=== PATIENT | female | born 1950 | race American Indian/Alaskan Native ===

== ENCOUNTER 2021-07-05 17:58 | Emergency (ER) | payer MEDICAID, MEDICARE ==
[2021-07-06 06:30] VITALS: BP 135/79
--- NOTE | 2021-07-06 07:16 | Emergency Department Report ---
ED Abdominal Pain HPI - General Chief Complaint: Urogenital-Female Stated Complaint: CHEST PAIN/FEVER/ABD PAIN Time Seen by Provider: 07/06/21 06:40 Source: EMS Mode of arrival: Stretcher Limitations: No Limitations - History of Present Illness Initial Comments: 70-year-old female who was recently diagnosed with acid reflux s/p EGD done in [place] who now presents with worsening epigastric pain associated with nausea without any significant emesis. Patient also reports some fever without chills. Patient also mentions some painful urination with also lower abdominal discomfort. No other modifying or associated factors reported. Severity scale (0 -10): 5 - Related Data Home Medications Medication Instructions Recorded Confirmed Last Taken AtorvaSTATin 80 mg PO QDAY 07/06/21 07/06/21 1 Day Ago ~07/05/21 Irbesartan-Hctz 150-12.5 mg Tb 12.5 mg PO QDAY 07/06/21 07/06/21 1 Day Ago ~07/05/21 Pantoprazole 40 mg PO QDAY 07/06/21 07/06/21 1 Day Ago ~07/05/21 Sucralfate 1 gm PO Q4HR 07/06/21 07/06/21 1 Day Ago ~07/05/21 Zolpidem Tartrate 5 mg PO QDAY 07/06/21 07/06/21 Unknown methocarbamoL [Methocarbamol] 750 mg PO TID 07/06/21 07/06/21 1 Day Ago ~07/05/21 Previous Rx's Medication Instructions Recorded Last Taken Type Omeprazole Magnesium [PriLOSEC Otc] 20 mg PO BID 30 Days #60 tab NS 07/06/21 Unknown Rx Sucralfate [Carafate] 1 gm PO ACHS 30 Days #60 tablet NS 07/06/21 Unknown Rx Allergies Allergy/AdvReac Type Severity Reaction Status Date / Time No Known Allergies Allergy Verified 07/06/21 07:44 ED Review of Systems ROS: Stated complaint: CHEST PAIN/FEVER/ABD PAIN Other details as noted in HPI Comment: All other systems reviewed and negative Cardiovascular: chest pain Gastrointestinal: abdominal pain (Epigastric and lower abdomen), nausea, vo miting Genitourinary: urgency, dysuria, frequency ED Past Medical Hx - Medications Home Medications: Home Medications Medication Instructions Recorded Confirmed Last Taken Type AtorvaSTATin 80 mg PO QDAY 07/06/21 07/06/21 1 Day Ago History ~07/05/21 Irbesartan-Hctz 150-12.5 mg Tb 12.5 mg PO QDAY 07/06/21 07/06/21 1 Day Ago History ~07/05/21 Omeprazole Magnesium [PriLOSEC Otc] 20 mg PO BID 30 Days #60 tab NS 07/06/21 Unknown Rx Pantoprazole 40 mg PO QDAY 07/06/21 07/06/21 1 Day Ago History ~07/05/21 Sucralfate 1 gm PO Q4HR 07/06/21 07/06/21 1 Day Ago History ~07/05/21 Sucralfate [Carafate] 1 gm PO ACHS 30 Days #60 tablet NS 07/06/21 Unknown Rx Zolpidem Tartrate 5 mg PO QDAY 07/06/21 07/06/21 Unknown History methocarbamoL [Methocarbamol] 750 mg PO TID 07/06/21 07/06/21 1 Day Ago History ~07/05/21 ED Physical Exam - General Limitations: No Limitations General appearance: alert, in distress (Due to epigastric discomfort) - Head Head exam: Present: normal inspection - Eye Eye exam: Present: normal appearance Pupils: Present: normal accommodation - ENT ENT exam: Present: normal exam, normal orophraynx, mucous membranes dry - Neck Neck exam: Present: normal inspection, full ROM. Absent: tenderness - Respiratory Respiratory exam: Present: normal lung sounds bilaterally. Absent: respiratory distress, accessory muscle use - Cardiovascular Cardiovascular Exam: Present: regular rate, normal rhythm, normal heart sounds - GI/Abdominal GI/Abdominal exam: Present: soft, tenderness (Epigastric tenderness and suprapubic tenderness to palpation), normal bowel sounds - Extremities Exam Extremities exam: Present: normal inspection, full ROM, normal capillary refill. Absent: tenderness, pedal edema, joint swelling - Back Exam Back exam: Absent: tenderness - Neurological Exam Neurological exam: Present: alert, oriented X3 - Psychiatric Psychiatric exam: Present: normal affect, normal mood - Skin Skin exam: Present: warm, normal color ED Course Vital Signs 07/06/21 07/06/21 07/06/21 02:10 06:08 06:29 Temperature 99.9 F H 97.9 F Pulse Rate 121 H 121 H 119 H Respiratory 22 15 Rate Blood Pressure 117/86 119/77 Blood Pressure 135/79 [Left] O2 Sat by Pulse 98 97 100 Oximetry 07/06/21 10:46 Temperature Pulse Rate Respiratory 16 Rate Blood Pressure Blood Pressure [Left] O2 Sat by Pulse 98 Oximetry - Reevaluation(s) Reevaluation #1: 07/06/21 07:14 Patient here with epigastric tenderness and noted with tenderness in this area and suprapubic tenderness with urinary frequency and dysuria--symptoms differential cool include but not limited to gastritis, GERD, myocardial infarction, pneumonia, urinary tract infection, pancreatitis, or constipation--in order to rule out the above we will go ahead and order EKG, cardiac enzyme troponin, get a chest x-ray, with lipase, CBC, CMP, and UA. In the meantime we will go ahead and give GI cocktail for symptomatic relief and get a CT scan of the abdomen to rule out any intra-abdominal inflammation as a cause. Reevaluation #2: 07/06/21 08:48 Lab reviewed and noted hypokalemia of 3.2, hyponatremia of 133 and abnormal TSH at 7.25 so we will go ahead and give 20 mEq of potassium, 1 L of IV fluid normal saline and order free T4--and continue to monitor patient. 07/06/21 14:[address] Sidhu while waiting for free T4 and if normal this patient could be discharged home for GERD with prilosec and sucrafate with close follow up with PCP-- ED Medical Decision Making - Lab Data Result diagrams: 07/06/21 07:31 07/06/21 07:31 Critical care attestation.: If time is entered above; I have spent that time in minutes in the direct care of this critically ill patient, excluding procedure time. ED Disposition Clinical Impression: Hypokalemia, Hyponatremia Abdominal pain Qualifiers: Abdominal location: unspecified location Qualified Code(s): R10.9 - Unspecified abdominal pain Gastritis Qualifiers: Gastritis type: unspecified gastritis Chronicity: chronic Gastritis bleeding: presence of bleeding unspecified Qualified Code(s): K29.50 - Unspecified chronic gastritis without bleeding GERD (gastroesophageal reflux disease) Qualifiers: Esophagitis presence: esophagitis presence not specified Qualified Code(s): K21.9 - Gastro-esophageal reflux disease without esophagitis Disposition: 30 STILL A PATIENT Does the pt Need Aspirin: No Condition: Stable Instructions: Gastritis, Adult, [id number], Abdominal Pain, Adult, [id number], Gastroesophageal Reflux Disease, Adult, [id number] Additional Instructions: Avoid spicy or heavy fatty meal which could worsen your symptoms Increase your daily fluid to help your hydration Take your new medication Prilosec and sucrafat to help your symptoms Schedule follow-up with your primary doctor in the next 3 to 5 days for progress Please do not hesitate to call or return to emergency room if your symptoms worsen Prescriptions: Sucralfate [Carafate] 1 gm PO ACHS 30 Days #60 tablet NS Omeprazole Magnesium [PriLOSEC Otc] 20 mg PO BID 30 Days #60 tab NS Referrals: [facility]LE[facility] PANCHAL [Other] - 3-5 Days Time of Disposition: 14:54 (Pt signed to Dr abrams at shift change )
[2021-07-06 07:45] LABS: Basophils % (Auto) 0.2 % (0.0-1.8); Eosinophils # (Auto) 0.1 K/mm3 (0.0-0.4); Eosinophils % (Auto) 0.6 % (0.0-4.3); Hematocrit 41.5 % (30.3-42.9); Hemoglobin 14.1 gm/dl (10.1-14.3); Lymphocytes # (Auto) 2.4 K/mm3 (1.2-5.4); Lymphocytes % (Auto) 25.2 % (13.4-35.0); Mean Corpuscular HGB Conc 34 % (30-34); Mean Corpuscular Volume 90 fl (79-97); Monocytes # (Auto) 0.9 K/mm3 (0.0-0.8); Monocytes % (Auto) 9.8 % (0.0-7.3); Platelet Count 337 K/mm3 (140-440); Red Blood Count 4.59 M/mm3 (3.65-5.03); Red Cell Distribution Width 13.7 % (13.2-15.2)
[2021-07-06] MEDS ORDERED: ONDANSETRON 4 MG/2 ML INJ IV SCH (08:00)
[2021-07-06] MEDS ORDERED: ALUM-MAG HYDROXIDE-SIMETHICONE 200-200-20MG/5ML ORAL LIQD 30 ML PO SCH (08:00)
[2021-07-06] MEDS ORDERED: LIDOCAINE VISCOUS 2% 15 ML ORAL LIQD PO SCH (08:00)
--- NOTE | 2021-07-06 08:04 | XRay Report ---
CHEST 1 VIEW INDICATION / CLINICAL INFORMATION: epigastric pain STUDY TIME: 741 COMPARISON: None available. FINDINGS: SUPPORT DEVICES: None HEART / MEDIASTINUM: No significant abnormality. LUNGS / PLEURA: No significant acute pulmonary or pleural abnormality. No pneumothorax. ADDITIONAL FINDINGS: No significant additional findings. Signer Name: Eloy Schwartz MD Signed: 07/06/2021 7:59 AM Workstation Name: [email or web address]
[2021-07-06 08:13] LABS: Alanine Aminotransferase 21 units/L (7-56); Albumin 4.3 g/dL (3.9-5); BUN/Creatinine Ratio 22; Blood Urea Nitrogen 20 mg/dL (7-17); Calcium 11.1 mg/dL (8.4-10.2); Hemolysis Index 7
[2021-07-06] MEDS ORDERED: PHENobarbital 15 MG TAB PO ONE (08:30)
[2021-07-06 08:49] LABS: INR 0.94 (0.87-1.13)
--- NOTE | 2021-07-06 09:29 | Cat Scan Report ---
CT ABDOMEN AND PELVIS WITH CONTRAST HISTORY: epigastric and suprapubic pain COMPARISON: None TECHNIQUE: Routine abdominal and pelvic CT exam performed following intravenous contrast administrat ion.. All CT scans at this location are performed using CT dose reduction for ALARA by means of autom ated exposure control. FINDINGS: CT ABDOMEN: Lung Bases: No significant abnormality. Liver: No significant abnormality. Biliary: Gallbladder is surgically absent. Spleen: No significant abnormality. Unenlarged. Pancreas: No significant abnormality. Adrenals: No significant abnormality. Kidneys: No significant abnormality. Lymphatics: No lymphadenopathy. Vasculature: No significant abnormality. Bowel/Peritoneum: No significant abnormality. No free air. No free fluid. CT PELVIC: : No significant abnormality. Lymphatics: No lymphadenopathy. Osseous Structures: No aggressive appearing osseous lesions. Additional Findings: None IMPRESSION: 1. No significant abnormality. Signer Name: Moisés Moyer MD Signed: 07/06/2021 9:25 AM Workstation Name: [email or web address]
[2021-07-06] MEDS ORDERED: SODIUM CHLORIDE 0.9% 1000 ML 1,000 ML IV ONE ×2 (10:04→11:58)
[2021-07-06] MEDS ORDERED: POTASSIUM CHLORIDE ER 20 MEQ TAB PO ONE (12:42)
[2021-07-06 12:43] LABS: Bacteria,Urine 1+ /HPF (Negative); Bilirubin,Urine NEG (Negative); Blood,Urine NEG (Negative); Color,Urine Yellow (Yellow); Hyaline Casts,Urine 7 /LPF; Mucus,Urine FEW /HPF; Protein,Urine <15 mg/dL mg/dL (Negative); Urobilinogen,Urine < 2.0 mg/dL (<2.0)
== END 2021-07-06 17:13 | disposition home or self-care (01) ==
LOC: ED 17:58
DX: R10.31 Right lower quadrant pain (principal); K21.9 Gastro-esophageal reflux disease without esophagitis; K29.70 Gastritis, unspecified, without bleeding; E87.6 Hypokalemia; E87.1 Hypo-osmolality and hyponatremia; Z79.899 Other long term (current) drug therapy
CPT/HCPCS: 36415; 71045; 74177; 80053; 81001; 82140; 83690; 83880; 84439; 84443; 84484; 85025; 85610; 85730; 87086; 93005; 96361; 96374; 99285; J2405; J7030; Q9967

== ENCOUNTER 2021-07-30 23:39 | Emergency (ER) | payer MEDICARE ==
[2021-07-30 23:50] VITALS: BP 132/78
== END 2021-07-31 07:03 | disposition left against medical advice (07) ==
LOC: EDBD → ED 23:39
DX: R10.9 Unspecified abdominal pain (principal); Z53.21 Procedure and treatment not carried out due to patient leaving prior to being seen by health care provider